=== PATIENT | male | born 1995 | race Caucasian/White ===

== ENCOUNTER 2021-05-31 19:46 | Emergency (ER) | payer SELFPAY ==
[~2021-05-31] VITALS: Ht 175.3 cm; Wt 104.5 kg
[~2021-05-31 19:46] MED LIST: BUSCAPINA PO
[2021-05-31 19:51] VITALS: BP 153/88
[2021-05-31] MEDS ORDERED: SULFAMETHOX/TRIMETH DS 800-160 MG/TABLET PO ONE (22:45)
[2021-05-31] MEDS ORDERED: CEPHALEXIN MONOHYDRATE 500 MG CAPSULE PO ONE (22:45)
[2021-05-31] MEDS ORDERED: IBUPROFEN 600 MG TABLET PO ONE (22:45)
== END 2021-06-01 00:07 | disposition home or self-care (01) ==
LOC: EMS 19:50
DX: L02.413 Cutaneous abscess of right upper limb (principal); R20.0 Anesthesia of skin; Z91.041 Radiographic dye allergy status
CPT/HCPCS: 99283